=== PATIENT | male | born 1985 | race Caucasian/White ===

== ENCOUNTER 2018-03-14 16:46 | Emergency (ER) | payer MEDICAID, OTHER ==
[~2018-03-14] VITALS: Ht 180.3 cm; Wt 73.2 kg
[2018-03-14] MEDS ORDERED: HYDROmorphone 2 MG/ML, 1ML ONE ×2 (17:44→19:52)
[2018-03-14] MEDS ORDERED: HYDROmorphone 1 MG/ML, 1ML IM ONE (18:00)
[2018-03-14 19:21] LABS: MICROSCOPIC AUTO
[2018-03-14 19:25] LABS: CULTURE INDICATED? YES
[2018-03-14] MEDS ORDERED: HYDROmorphone 1 MG/ML, 1ML IVPush PRN (19:30)
[2018-03-14] MEDS ORDERED: SODIUM CHLORIDE FLUSH 10ML SYR IVF ONE (19:30)
[2018-03-14 19:51] LABS: BASOPHILS # (AUTO) 0.05 x10^3/uL (0-0.1); BASOPHILS % (AUTO) 1 % (0-1); EOSINOPHILS # (AUTO) 0.32 x10^3/uL (0-0.4); EOSINOPHILS % (AUTO) 3 % (1-7); LYMPHOCYTES # (AUTO) 2.81 x10^3/uL (1-3.4); LYMPHOCYTES % (AUTO) 27 % (22-44); MD NO; MEAN CORPUSCULAR HEMOGLOBIN 33.5 pg (27.5-34.5); MEAN CORPUSCULAR HGB CONC 34.7 g/dL (33.2-36.2); MEAN CORPUSCULAR VOLUME 96.6 fL (81-97); MEAN PLATELET VOLUME 7.4 fL (7.4-10.4); MONOCYTES # (AUTO) 0.91 x10^3/uL (0.2-0.8); MONOCYTES % (AUTO) 9 % (2-9); NEUTROPHILS # (AUTO) 6.16 x10^3/uL (1.8-6.8); NEUTROPHILS % (AUTO) 60 % (42-75); PLATELET COUNT 282 x10^3/uL (130-400); RED BLOOD COUNT 4.16 x10^6/uL (4.38-5.82); RED CELL DISTRIBUTION WIDTH 12.2 % (9.4-14.8)
[2018-03-14 20:03] LABS: ALANINE AMINOTRANSFERASE 33 U/L (12-78); ALBUMIN 3.9 g/dL (3.4-5.0); ANION GAP 7 mmol/L (5-15); CALCIUM 8.2 mg/dL (8.5-10.1); CHLORIDE 107 mmol/L (98-107)
[2018-03-14 20:05] LABS: ALKALINE PHOSPHATASE 64 U/L (45-117); BILIRUBIN,TOTAL 0.3 mg/dL (0.2-1.0); CREATININE 0.94 mg/dL (0.7-1.3); TOTAL PROTEIN 7.2 g/dL (6.4-8.2)
[2018-03-14 21:39] VITALS: BP 106/55
[2018-03-14] MEDS ORDERED: CEFTRIAXONE 1,000 MG IM ONE (22:30)
[2018-03-14] MEDS ORDERED: CEFTRIAXONE 1,000 MG ONE (22:30)
[2018-03-14] MEDS ORDERED: CEFTRIAXONE 250 MG ONE (22:35)
== END 2018-03-14 22:43 | disposition home or self-care (01) ==
LOC: ED 19:38
DX: N50.812 Left testicular pain (principal)
CPT/HCPCS: 36415; 74176; 76870; 80053; 81001; 85025; 87086; 87491; 87591; 96372; 96374; 99285; J0696; J1170

== ENCOUNTER 2020-08-08 16:43 | Emergency (ER) | payer MEDICAID ==
[~2020-08-08] VITALS: Ht 180.3 cm; Wt 65.5 kg
[2020-08-08 17:06] VITALS: BP 109/68
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
[2020-08-08] MEDS ORDERED: IBUPROFEN 600 MG TABLET PO ONE (18:00)
[2020-08-08] MEDS ORDERED: IBUPROFEN 600 MG TABLET ONE (18:02)
--- NOTE | 2020-08-08 18:43 | NUR ---
report given to sonja calvert
== END 2020-08-08 19:48 | disposition home or self-care (01) ==
LOC: ED 17:26
DX: S62.336A Displaced fracture of neck of fifth metacarpal bone, right hand, initial encounter for closed fracture (principal); F17.200 Nicotine dependence, unspecified, uncomplicated; W18.30XA Fall on same level, unspecified, initial encounter; Y93.89 Activity, other specified; Y92.009 Unspecified place in unspecified non-institutional (private) residence as the place of occurrence of the external cause; Y99.8 Other external cause status
CPT/HCPCS: 29125; 99283